=== PATIENT | male | born 1940 | race Caucasian/White ===

== ENCOUNTER 2019-07-16 00:57 | Outpatient (CLI) | payer MEDICARE, OTHER, SELFPAY ==
--- NOTE | 2019-07-16 | DI.MRI_ITS ---
EXAM: MR PELVIS WO CLINICAL HISTORY: PROSTATE CA,S/P FIDUCIAL MARKER AND HYDROGEL PLACEMENT,RADIATION PLANNING, TECHNIQUE: Multiplanar multisequence MRI of Pelvis was performed COMPARISON: No exams were available for comparison FINDINGS: Examination was performed for radiation planning. Note is made of a right inguinal hernia. Portions of the urinary bladder are seen within the right inguinal hernia. IMPRESSION: MRI examination of the pelvis for radiation planning. DATA REPOSITORY:
== END 2019-07-16 01:17 ==
PROVIDERS: PCP Nurse Practitioner Family; Visit Provider Radiology Radiation Oncology
DX: C61 Malignant neoplasm of prostate (principal); Z51.0 Encounter for antineoplastic radiation therapy
CPT/HCPCS: 72195

== ENCOUNTER 2019-11-21 12:55 | Outpatient (CLI) | payer MEDICARE, OTHER, SELFPAY ==
[2019-11-21 13:29] LABS: Abs Immature Grans 0.49 10^3/uL (0.0-0.06); HCT 27.5 % (40.0-50.0); HGB 8.4 g/dL (13.5-17.5); MCH 28.7 pg (27.0-33.0); MCHC 30.5 % (32.0-36.0); MCV 93.9 fL (80-95); MPV 8.2 fL (8.0-11.0); Nucleated RBC 0 %; Platelet Count 421 10^3/uL (130-400); RBC 2.93 10^6/uL (4.36-5.78); RDW-SD 55.4 fL; WBC 7.58 10^3/uL (4.4-10.8)
[2019-11-21 13:41] LABS: ALT 9 U/L (16-63); AST 17 U/L (15-37); Albumin 2.4 g/dL (3.4-5.0); Alkaline Phosphatase 122 U/L (46-116); Anion Gap 9.1 mmol/L (3-11); BUN 22 mg/dL (7-18); Bilirubin, Total 0.4 mg/dL (0.2-1.0); CO2 24.9 mmol/L (21.0-32.0); CREATININE 1.87 mg/dL (0.70-1.30); Calcium 9.7 mg/dL (8.5-10.1); Chloride 101 mmol/L (98-107); Estimated GFR 35.19 (mL/min/1.73m2); Glucose 87 mg/dL (74-106); Potassium 3.9 mmol/L (3.5-5.1); Sodium 135 mmol/L (136-145); Total Protein 7.1 g/dL (6.4-8.2)
[2019-11-21 14:00] LABS: Absolute Lymphocyte Count 1.67 10^3/uL (1.2-3.4); Absolute Neutrophil Count 4.78 10^3/uL (1.2-6.7)
[2019-11-21 14:01] LABS: Absolute Eosinophil Count 0.15 10^3/uL (0.0-0.7); Absolute Monocyte Count 0.61 10^3/uL (0.1-0.8); Anisocytosis 2+; Diff Comment Manual Differential; Metamyelocytes % 2; Myelocytes % 3; Polychromasia Present
[2019-11-24 12:05] LABS: PSA, Ultrasensitive <0.01 ng/mL (<= 6.5)
[2019-11-25 21:06] LABS: Testosterone, Total <7.0 ng/dL (240-950)
== END 2019-11-21 13:15 ==
PROVIDERS: Nurse Practitioner Family; PCP Nurse Practitioner Family; Visit Provider Internal Medicine Hematology & Oncology
DX: C61 Malignant neoplasm of prostate (principal)
CPT/HCPCS: 36415; 80053; 84153; 84403; 85025